=== PATIENT | male | born 1965 | race Caucasian/White ===

== ENCOUNTER 2019-02-17 22:27 | Emergency (ER) | payer OTHER, SELFPAY ==
[2019-02-17 22:35] VITALS: BP 123/88; PULSE 65; RESP 16; TEMP 36.5; O2SAT 97; BMI 23.6
--- NOTE | 2019-02-17 22:35 | ED.DENTAL ---
HPI - Dental/Oral General Chief complaint: Dental/Oral Stated complaint: severe tooth ache Time Seen by Provider: 02/17/19 22:35 Source: patient and family Mode of arrival: ambulatory Limitations: no limitations History of Present Illness HPI Narrative: 53-year-old male former smoker presents with severe left upper molar pain over the course of the day. He admittedly has poor dentition and hates going to the dentist. He denies fever or chills nor traumatic injury. He denies any foul taste or swelling in his mouth. He suggests a very slight amount of left-sided facial swelling. MD Complaint: tooth pain 1. Onset (ago): hour(s) Duration: constant Severity: severe Relieving factors: nothing Exacerbating factors: chewing and drinking fluids Context: history of dental caries and poor dental care Treatment prior to arrival: topical analgesic and oral analgesic Related Data Previous Rx's Medication Instructions Recorded amoxicillin 500 mg PO TID #27 caplet 02/17/18 penicillin V potassium 500 mg PO QID 7 Days #28 tab 02/17/19 Allergies Allergy/AdvReac Type Severity Reaction Status Date / Time No Known Drug Allergies Allergy Verified 02/17/19 23:07 Review of Systems Constitutional Denies chills, Denies fever(s), Denies lethargy and Denies weakness Eyes Denies change in vision, Denies eye discharge, Denies irritation and Denies loss of vision ENT Ears, Nose, Mouth, and Throat: Denies change in voice, Reports dental pain, Denies neck pain and Denies sore throat Cardiovascular Denies chest pain, Denies irregular heart rhythm, Denies lightheadedness, Denies palpitations, Denies dyspnea, Denies dyspnea on exertion and Denies orthopnea Respiratory Denies cough, Denies dyspnea, Denies dyspnea on exertion and Denies wheezing Gastrointestinal Gastrointestinal: Denies abdominal pain, Denies change in bowel habits, Denies diarrhea, Denies nausea and Denies vomiting Genitourinary Denies hematuria, Denies flank pain, Denies urinary incontinence and Denies urinary urgency Musculoskeletal Denies neck pain Integumentary/Breasts Denies pruritus, Denies erythema, Denies rash and Denies wounds Neurologic Denies confusion, Denies loss of vision and Denies weakness Psychiatric Denies anxiety, Denies confusion, Denies depression, Denies homicidal ideation and Denies suicidal ideation Endocrine Denies palpitations Hematologic/Lymphatic Denies easy bruising Allergic/Immunologic Denies wheezing [facility] Medical History No significant medical problems (Acute) Surgical History No history of previous surgery (Acute) Social History (Updated 02/17/18 @ 03:37 by Ryan Cage MD) Smoking Status: Former smoker additional social history: Social and family history is otherwise noncontributory Social History Smoking Status: Former smoker additional social history: Social and family history is otherwise noncontributory Exam Narrative Exam Narrative: GEN: 53-year-old male appears stated age, obviously uncomfortable and massaging his left face EYES: Pupils are equal, round, and reactive to light and accommodation. Extraoccular muscles are intact bilaterally. There is no subconjunctival hemorrhage or exudate. ORAL: minimal L facial swelling. Poor dentition throughout. No obvious abscess. Tooth 16 very sensitive CHEST: Lungs are clear to auscultation bilaterally and free of wheezes, rales, or rhonchi. Heart rate is regular rhythm, there are no murmurs, clicks, rubs, or gallops. There is no chest wall tenderness. ABD: Abdomen is soft and nontender. There is no guarding or rebound. Bowel sounds are normal in all 4 quadrants. There is no mass or organomegaly. EXT: Full painless ROM of all extremities with no loss of sensation or strength. SKIN: Warm, pink, and dry. No erythema or rash Initial Vital Signs Initial Vital Signs: Vital Signs Temperature 97.7 F 02/17/19 22:35 Pulse Rate 65 02/17/19 22:35 Respiratory Rate 16 02/17/19 22:35 Blood Pressure 123/88 02/17/19 22:35 Pulse Oximetry 97 02/17/19 22:35 Procedures Nerve Block Nerve Block 1: Time out performed: No Local Anesthetic: lidocaine 1%, bupivacaine 0.25% and with epi Amount of anesthesia used (mL): 4 Side: left Intraoral Nerve Block: supraperiosteal Procedure Successful: Yes Patient Tolerated Procedure: Well Complications: none Course Orders Ordered: Discontinued Medications Ketorolac Tromethamine (Toradol) 60 mg IM NOW ONE Stop: 02/17/19 23:03 Last Admin: 02/17/19 23:12 Dose: 60 mg Penicillin V Potassium (Penicillin Vk 250mg Tab Prepack) 1 bottle MISC SEEINSTR ONE Stop: 02/17/19 23:03 Last Admin: 02/17/19 23:12 Dose: 1 bottle Vital Signs - 8 hr 02/17/19 22:35 02/17/19 23:29 Temperature 97.7 F Pulse Rate 65 66 Respiratory Rate 16 18 Blood Pressure 123/88 133/94 H Pulse Oximetry 97 97 Discharge Plan Departure Patient Disposition: Home Clinical Impression: Toothache Discharge Date/Time: 02/17/19 23:29 Interventions: ED Discharge Assessment Last Done: 02/17/19 23:29 Instructions: DI for Dental Pain Activity Restrictions/Additional Instructions: *You have been diagnosed with [dental pain, possible dental infection] *What to do: *Take medications as directed *Follow up with your dentist. Please call first thing on tuesday morning *Return to ER if you should have any new, worsening or concerning symptoms Prescriptions: New penicillin V potassium 500 mg tablet 500 mg PO QID 7 Days Qty: 28 RF: 0 No Action amoxicillin 500 mg capsule 500 mg PO TID Qty: 27 RF: 0
[2019-02-17] MEDS: KETOROLAC 60 MG/2 ML VIAL IM (23:12)
[2019-02-17] MEDS: PENICILLIN 250 MG TAB PREPACK 1 BOTTLE MISC (23:12)
[2019-02-17 23:29] VITALS: BP 133/94; PULSE 66; RESP 18; O2SAT 97
== END 2019-02-17 23:29 | disposition home or self-care (01) ==
PROVIDERS: Emergency Provider Emergency Medicine
DX: K08.89 Other specified disorders of teeth and supporting structures (principal)
CPT/HCPCS: 64450; 96372; 99282; 99283; J1885

== ENCOUNTER 2025-01-18 06:25 | Day surgery (SDC) | payer OTHER, SELFPAY ==
--- NOTE | 2025-01-18 | PATH_ITS ---
[facility] Accession Number: [id number] No. of containers..01 Tissue . 01 Material submitted: . sigmoid colon - SIGMOID POLYP . 01 Diagnosis: SIGMOID COLON POLYP: Tubular adenoma. MRV 01/22/2025 1236 Local . 01 Electronically signed: . Cheryl Leonard MD, Pathologist NPI- [id number] . 01 Gross description: . SIGMOID POLYP: Received in formalin is 1 fragment(s) of lebron, soft tissue measuring 0.6 x 0.5 x 0.3 cm submitted entirely in 1 cassette(s) /TABBY 01/19/2025 0118 Local . 01 Pathologist provided ICD-10: D12.5 . 01 CPT . 193747 Specimen Comment: A courtesy copy of this report has been sent to [facility] Pathology Performed at: [address] [facility] [id number] MD Poli Hinojosa MD Phone: [phone]
[2025-01-18 06:56] VITALS: BP 124/76; PULSE 64; RESP 17; TEMP 36.6; O2SAT 95
[2025-01-18] MEDS: LACTATED RINGERS 1,000 ML 42 ML IV (07:29)
--- NOTE | 2025-01-18 07:42 | P.HP_ITS ---
History of Present Illness History of Present Illness Date Patient Seen: 01/18/25 Time Patient Seen: 07:42 Chief complaint: Colonoscopy Narrative: 59 year old WM with his last colonoscopy with polyps about 12-15 years ago. No issues. Lost to follow-up, changed primary care providers. [facility] Medical History (Updated 01/18/25 @ 07:43 by Grayson Trejo MD) No significant medical problems Surgical History No history of previous surgery Social History Smoking Status: Former smoker alcohol intake: former additional social history: Social and family history is otherwise noncontributory Meds Home Medications and Allergies Home Medications Medication Instructions Recorded Confirmed Type aspirin 81 mg tablet,delayed 81 mg PO DAILY 01/18/25 01/18/25 History release atorvastatin 80 mg tablet 80 mg PO DAILY 01/18/25 01/18/25 History losartan 25 mg tablet 25 mg PO DAILY 01/18/25 01/18/25 History metformin 500 mg tablet 500 mg PO QAM 01/18/25 01/18/25 History metoprolol succinate 50 mg 50 mg PO DAILY 01/18/25 01/18/25 History tablet,extended release 24 hr Allergies Allergy/AdvReac Type Severity Reaction Status Date / Time No Known Drug Allergies Allergy Verified 01/18/25 07:04 Review of Systems Review of Systems ROS: Yes All systems reviewed with the patient and are negative except as otherwise documented Exam Vital Signs (past 8 hours): - 01/18/25 06:56 Temperature 97.8 F Pulse Rate 64 Respiratory Rate 17 Blood Pressure 124/76 Pulse Oximetry 95 Oxygen Delivery Method Room Air Oxygen Delivery Method Room Air Narrative Exam Narrative: Gen: NAD, sitting comfortably in bed, appears well HEENT: Sclera are anicteric, head is normocephalic and atraumatic, trachea is midline. CV: RRR, no JVD Resp: clear to auscultation bilaterally, equal chest wall movement bilaterally Abd: soft, nontender, normoactive bowel sounds Ext: no edema, full range of motion Neuro: Cranial nerves II-XII grossly intact, no focal deficits Skin: No erythema or ecchymosis Assessment & Plan Assessment and plan (1) Personal history of colonic polyps: Status: Acute Plan Patient presents for colonoscopy Risks, benefits, alternatives to colonoscopy explained, including but not limited to bowel perforation or other serious complication requiring surgery at less than 1 in 5000 colonoscopies, abdominal pain, cramping or bleeding and less than 1% of colonoscopies, and the chances that we find a diagnosis that would require further intervention of about 2%. Patient agrees to proceed. Time-Based Coding :: [TOTAL MINUTES] spent with patient and on the chart (including review of chart, obtaining history, exam, reviewing outside data, placing orders, documenting exam and treatment plan, and counseling patient) on [DATE]. [employer] Vari[employer] Operator Document charge(s): No
[2025-01-18 08:07] VITALS: BP 113/72; PULSE 66; RESP 16; TEMP 36.4; O2SAT 90
--- NOTE | 2025-01-18 08:08 | PM.OP.COLON ---
Operative Date/Time/Diagnoses Date of procedure: 01/18/25 Time of procedure: 08:08 Pre-op diagnosis: Personal history of polyps Post-op diagnosis: same (Sigmoid polyp) Procedure & Clinicians Study performed: Colonoscopy with cold snare polypectomy of sigmoid polyp Same procedure as scheduled: Yes Indications: Personal history of polyps Surgeon: Grayson Trejo Procedure Notes SCOAP/Timeout: Performed Procedure in detail: Time-out was performed. Mac was induced. Patient was placed in left lateral decubitus position. The perineum was inspected without any gross abnormality. Lubricated pediatric colonoscope was inserted and advanced to the cecum. The terminal ileum was intubated. The colonoscope was withdrawn slowly inspecting the circumference of the colon. There was approximately 12 mm polyp of the sigmoid colon, removed completely with cold snare polypectomy and retrieved. Very small polyps may have been missed, prep quality was adequate. Retroflexed view of the rectum showed small, non prolapsed nonbleeding internal hemorrhoids. The scope was withdrawn the patient was taken to PACU in good condition. Scope withdrawal time: 9 Sedation minutes: 19 Findings: internal hemorrhoids and polyp(s) Specimen(s): other (Sigmoid polyp) Complications: none Impression: Sigmoid polyp Post-procedure Recommendations: Colonoscopy in 3 years Plan for aftercare: home Follow up: as needed Disposition: PACU
[2025-01-18 08:12] VITALS: BP 128/79; PULSE 64; RESP 20; O2SAT 92
[2025-01-18 08:17] VITALS: BP 115/71; PULSE 64; RESP 16; O2SAT 94
[2025-01-18 08:22] VITALS: BP 118/71; PULSE 63; RESP 13; TEMP 36.4; O2SAT 95
== END 2025-01-18 09:07 | disposition home or self-care (01) ==
PROVIDERS: PCP Family Medicine; Referring Provider Surgery; Visit Provider Surgery
PROC: 0DJD8ZZ Inspection of Lower Intestinal Tract, Via Natural or Artificial Opening Endoscopic (ICD-10-PCS; CPT 45378; principal; 2025-01-18 07:45)
DX: Z12.11 Encounter for screening for malignant neoplasm of colon (principal); Z87.891 Personal history of nicotine dependence; Z86.0100 Personal history of colon polyps, unspecified; K64.8 Other hemorrhoids; D12.5 Benign neoplasm of sigmoid colon
CPT/HCPCS: 45385; J2704